=== PATIENT | male | born 1970 | race Hispanic/Latino ===

== ENCOUNTER 2018-02-11 19:58 | Emergency (ER) | payer BC ==
[2018-02-11 20:07] VITALS: BP 135/89; PULSE 113; RESP 16; O2SAT 99
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
== END 2018-02-11 22:56 | disposition home or self-care (01) ==
LOC: H.ER 19:58
DX: F32.9 Major depressive disorder, single episode, unspecified (principal)